=== PATIENT | male | born 1960 | race Hispanic/Latino ===

== ENCOUNTER → 2018-06-20 | Outpatient (CLI) | payer OTHER ==
--- NOTE | 2018-06-20 18:42 | Diagnostic Imaging Report ---
BILATERAL SHOULDERS - 2 Images EACH HISTORY: Pain COMPARISON: None available. FINDINGS: Bones: No acute displaced fracture. No aggressive osseous lesion. Healed fracture deformity of the distal left clavicle. Joints: Moderate degenerative changes of the right and mild degenerative changes of the left acromioclavicular joints. Soft tissues: The soft tissues appear unremarkable. IMPRESSION: 1. No acute radiographic abnormality. 2. Moderate right and mild left, acromioclavicular osteoarthrosis. Signed by: Dr. Dixon Levy D.O., M.M.M. on 06/20/2018 6:38 PM
== END ==
LOC: RAD 17:42
PROVIDERS: ATTEND Family Medicine
DX: M25.512 Pain in left shoulder (principal); M25.511 Pain in right shoulder